=== PATIENT | female | born 1965 | race Caucasian/White ===

== ENCOUNTER → 2017-02-10 | Day surgery (SDC) | payer OTHER ==
[~2017-02-10] VITALS: Ht 165.1 cm; Wt 61.2 kg
[~2017-02-10] MED LIST: 0.9% Sodium Chloride 1,000 ML IV PRN; LACT1CAP60 PO; Sodium Chloride LOK Flush 10 mL Syringe IV PRN; fentaNYL-PF 50 mCg/mL 2 mL Inj IVPUSH PRN
[2017-02-10 09:03] VITALS: BP 121/51; PULSE 65; O2SAT 100
[2017-02-10 09:37] VITALS: BP 95/49; PULSE 62; RESP 14; O2SAT 100
[2017-02-10 09:47] VITALS: BP 93/49; PULSE 59; RESP 16; O2SAT 100
[2017-02-10 09:53] VITALS: BP 101/57; PULSE 66; RESP 16; O2SAT 100
--- NOTE | 2017-02-10 09:57 | ENDO ---
[address] [address] ENDOSCOPY PROCEDURE PATIENT: SERGEI JULES : 1965 MR#: [id number] ADMIT: 02/10/2017 JOB ID: [id number] DATE OF PROCEDURE: 02/10/2017 PRIMARY PROVIDER: Paula Malin ND PROCEDURE: Colonoscopy. INDICATIONS: A 51-year-old female who reports for colon cancer screening. EQUIPMENT: PCF-H190 SEDATION: 1. Versed 5 mg 2. Fentanyl 100 mcg COMPLICATIONS: None identified. BOWEL PREPARATION: Fair, adequate exam. PROCEDURE INFO: After the risks and benefits were explained, written and verbal informed consent was obtained. The patient was brought into the endoscopy suite and placed in the left lateral decubitus position. Sedation was achieved as above. Digital rectal examination accomplished. Mild internal hemorrhoids appreciated. The scope was introduced into the rectum and advanced to the cecum as identified by the appendiceal orifice and ileocecal valve. The scope was slowly withdrawn to carefully examine the mucosa for any defects or lesions. Multiple direct views were made through the dentate line for exclusion of pathology. The colon was decompressed. The scope removed the patient who tolerated the procedure well. FINDINGS: No significant polyps, mass lesions, or inflammatory features identified throughout. ENDOSCOPIC DIAGNOSES: Visually unremarkable colonoscopy to cecum. RECOMMENDATIONS: Repeat colonoscopy in 10 years' time, sooner should symptoms warrant an earlier exam.
== END | disposition home or self-care (01) ==
LOC: END 00:20
PROVIDERS: ATTEND Internal Medicine Gastroenterology
DX: Z12.11 Encounter for screening for malignant neoplasm of colon (principal); Z87.440 Personal history of urinary (tract) infections
CPT/HCPCS: 99153; G0121; G0500; J2250; J3010; J7030